=== PATIENT | female | born 1990 | race Caucasian/White ===

== ENCOUNTER 2024-01-16 08:19 | Outpatient (CLI) | payer BC | END 2024-01-16 08:20 | disposition home or self-care (01) | LOC: CSHWCC 08:19 | PROVIDERS: ATTEND Nurse Practitioner Family | DX: L97.302 Non-pressure chronic ulcer of unspecified ankle with fat layer exposed (principal); L02.416 Cutaneous abscess of left lower limb; Z89.512 Acquired absence of left leg below knee | CPT/HCPCS: 11042; 99213; G0463 ==

== ENCOUNTER 2024-02-28 08:18 | Outpatient (CLI) | payer BC | END 2024-02-28 08:19 | disposition home or self-care (01) | LOC: CSHWCC 08:18 | PROVIDERS: ATTEND Nurse Practitioner Family | DX: L97.302 Non-pressure chronic ulcer of unspecified ankle with fat layer exposed (principal); L02.416 Cutaneous abscess of left lower limb; Z89.512 Acquired absence of left leg below knee | CPT/HCPCS: 87070; 87077; 87205 ==

== ENCOUNTER 2024-03-20 15:56 | Outpatient (CLI) | payer BC | END 2024-03-20 15:57 | disposition home or self-care (01) | LOC: CSHWCC 15:56 | PROVIDERS: ATTEND Family Medicine | DX: L97.302 Non-pressure chronic ulcer of unspecified ankle with fat layer exposed (principal); L02.416 Cutaneous abscess of left lower limb; Z89.512 Acquired absence of left leg below knee | CPT/HCPCS: 87070; 87077; 87186; 87205; 99213; G0463 ==

== ENCOUNTER 2024-03-27 16:06 | Outpatient (CLI) | payer BC | END 2024-03-27 16:07 | disposition home or self-care (01) | LOC: CSHWCC 16:06 | PROVIDERS: ATTEND Nurse Practitioner Family | DX: L97.302 Non-pressure chronic ulcer of unspecified ankle with fat layer exposed (principal); L02.416 Cutaneous abscess of left lower limb; Z89.512 Acquired absence of left leg below knee | CPT/HCPCS: 11042; 99213; G0463 ==

== ENCOUNTER 2024-04-03 15:55 | Outpatient (CLI) | payer BC | END 2024-04-03 15:56 | disposition home or self-care (01) | LOC: CSHWCC 15:55 | PROVIDERS: ATTEND Nurse Practitioner Family | DX: Z47.81 Encounter for orthopedic aftercare following surgical amputation (principal); L97.302 Non-pressure chronic ulcer of unspecified ankle with fat layer exposed; L02.416 Cutaneous abscess of left lower limb; Z89.512 Acquired absence of left leg below knee | CPT/HCPCS: 11042; 97605 ==

== ENCOUNTER 2024-04-05 13:22 | Outpatient (CLI) | payer BC | END 2024-04-05 13:23 | disposition home or self-care (01) | LOC: CSHWCC 13:22 | PROVIDERS: ATTEND Nurse Practitioner Family | DX: L97.302 Non-pressure chronic ulcer of unspecified ankle with fat layer exposed (principal); L02.416 Cutaneous abscess of left lower limb; Z89.512 Acquired absence of left leg below knee | CPT/HCPCS: 99211; G0463 ==

== ENCOUNTER 2024-04-09 14:49 | Outpatient (CLI) | payer BC | END 2024-04-09 14:50 | disposition home or self-care (01) | LOC: CSHWCC 14:49 | PROVIDERS: ATTEND Nurse Practitioner Family | DX: L97.302 Non-pressure chronic ulcer of unspecified ankle with fat layer exposed (principal); L02.416 Cutaneous abscess of left lower limb; Z89.512 Acquired absence of left leg below knee | CPT/HCPCS: 11042 ==

== ENCOUNTER 2024-04-18 13:02 | Outpatient (CLI) | payer BC | END 2024-04-18 13:03 | disposition home or self-care (01) | LOC: CSHWCC 13:02 | PROVIDERS: ATTEND Nurse Practitioner Family | DX: L02.416 Cutaneous abscess of left lower limb (principal); L97.302 Non-pressure chronic ulcer of unspecified ankle with fat layer exposed; Z89.512 Acquired absence of left leg below knee | CPT/HCPCS: 11042 ==

== ENCOUNTER 2024-05-02 14:02 | Outpatient (CLI) | payer BC | END 2024-05-02 14:03 | disposition home or self-care (01) | LOC: CSHWCC 14:02 | PROVIDERS: ATTEND Nurse Practitioner Family | DX: L97.302 Non-pressure chronic ulcer of unspecified ankle with fat layer exposed (principal); L02.416 Cutaneous abscess of left lower limb; Z89.512 Acquired absence of left leg below knee | CPT/HCPCS: 11042 ==

== ENCOUNTER 2024-05-16 08:56 | Outpatient (CLI) | payer BC | END 2024-05-16 08:57 | disposition home or self-care (01) | LOC: CSHWCC 08:56 | PROVIDERS: ATTEND Nurse Practitioner Family | DX: L97.302 Non-pressure chronic ulcer of unspecified ankle with fat layer exposed (principal); L02.416 Cutaneous abscess of left lower limb; Z89.512 Acquired absence of left leg below knee | CPT/HCPCS: 11042 ==

== ENCOUNTER 2024-06-13 08:45 | Outpatient (CLI) | payer BC | END 2024-06-13 08:46 | disposition home or self-care (01) | LOC: CSHWCC 08:45 | PROVIDERS: ATTEND Nurse Practitioner Family | DX: L97.302 Non-pressure chronic ulcer of unspecified ankle with fat layer exposed (principal); Z89.512 Acquired absence of left leg below knee | CPT/HCPCS: 11042; 87070; 87077; 87186; 87205; 99213; G0463 ==

== ENCOUNTER 2024-07-25 08:49 | Outpatient (CLI) | payer BC | END 2024-07-25 08:50 | disposition home or self-care (01) | LOC: CSHWCC 08:49 | PROVIDERS: ATTEND Nurse Practitioner Family | DX: Z47.81 Encounter for orthopedic aftercare following surgical amputation (principal); L97.322 Non-pressure chronic ulcer of left ankle with fat layer exposed; Z89.512 Acquired absence of left leg below knee | CPT/HCPCS: 11042 ==